=== PATIENT | female | born 1995 | race Caucasian/White ===

== ENCOUNTER 2020-02-15 07:43 | Emergency (ER) | payer OTHER ==
[~2020-02-15] VITALS: Ht 167.6 cm; Wt 61.2 kg
[~2020-02-15 07:43] MED LIST: CIPROFLOXACIN500 M1 PO; CLARINEX-D 241 EACH PO; ESTRACE0.5 MG PO; ZOFRAN ODT4 MG SUBLING
[2020-02-15] MEDS ORDERED: DUPIXENT200 MG/1.1 (07:53)
[2020-02-15 08:23] LABS: ABSOLUTE EOSINOPHILS 0.1 thou/uL (0.0-0.7); ABSOLUTE LYMPHOCYTES 1.5 thou/uL (0.8-5.3); ABSOLUTE MONOCYTES 0.6 thou/uL (0.0-1.2); ABSOLUTE NEUTROPHILS 3.7 thou/uL (1.6-8.1); BASOPHILS 0.6 %; EOSINOPHILS 1.1 %; HEMOGLOBIN 13.5 gm/dL (12.0-15.0); MCH 31.1 pg (26.0-34.0); MCHC 35.4 g/dL (28.0-37.0); MCV 87.8 fL (80.0-100.0); MONOCYTES 9.5 %; MPV 7.8 fl. (7.2-11.1); NUCLEATED RBCS 0 /100WBC; PLATELET COUNT* 228 thou/uL (150-400); POLYS 62.8 %; RBC 4.33 mil/uL (4.20-5.00); RDW-CV 12.7 % (10.5-14.5); WBC 5.9 thou/uL (4.0-11.0)
[2020-02-15 08:35] LABS: CALCIUM 9.1 mg/dL (8.5-10.1); CREATININE 0.9 mg/dL (0.6-1.3); POTASSIUM 3.3 mmol/L (3.5-5.1)
[2020-02-15 08:39] LABS: ALBUMIN 3.9 g/dL (3.4-5.0); TOTAL BILIRUBIN 1.6 mg/dL (<0.1-1.0); TOTAL PROTEIN 7.1 g/dL (6.4-8.2)
[2020-02-15 09:03] LABS: URINE BILIRUBIN NEGATIVE (Negative); URINE BLOOD 2+ (Negative); URINE CLARITY CLEAR; URINE COLOR YELLOW; URINE GLUCOSE-RANDOM NEGATIVE (Negative); URINE KETONES NEGATIVE (Negative); URINE LEUKOCYTES-REFLEX NEGATIVE (Negative); URINE NITRITE-REFLEX NEGATIVE (Negative); URINE PROTEIN NEGATIVE (Negative); URINE SPECIFIC GRAVITY 1.025 (1.005-1.030); URINE UROBILINOGEN 0.2 E.U./dl (0.2-1.0)
[2020-02-15 09:20] LABS: SQUAMOUS 4-10 Moderate /LPF (0-3)
[2020-02-15 09:21] LABS: BACTERIA-REFLEX 1-9 Few /HPF (None Seen); CASTS None Seen /LPF (None Seen); CRYSTALS None Seen /LPF (None Seen); MUCUS 4-6 Moderate strn/LPF (None Seen); URINE RBC 3-10 Few /HPF (0-2); URINE WBC-REFLEX 0-5 Rare /HPF (0-5)
[2020-02-15] MEDS ORDERED: KEFLEX500 M1 PO (09:58)
[2020-02-15] MEDS ORDERED: ZOFRAN ODT4 MG DISSOLVE (09:58)
[2020-02-15] MEDS ORDERED: NORCO 5-325 TA1 EAC2 PO (09:58)
[2020-02-15] MEDS ORDERED: IBUPROFEN 800800 M1 PO (09:58)
[2020-02-15] MEDS ORDERED: FLOMAX0.4 MG PO (09:58)
[2020-02-15 10:26] VITALS: BP 121/70
== END 2020-02-15 10:26 | disposition home or self-care (01) ==
LOC: M.ERS 07:43
PROVIDERS: Emergency Medicine Emergency Medical Services
DX: N20.0 Calculus of kidney (principal)